=== PATIENT | male | born 1970 | race Caucasian/White ===

== ENCOUNTER 2018-02-04 15:09 | Emergency (ER) | payer OTHER, SELFPAY ==
[2018-02-04 15:10] VITALS: BP 130/71; PULSE 102; RESP 16; TEMP 36.8; O2SAT 98; BMI 31.4
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
[2018-02-04 17:38] VITALS: BP 117/78; PULSE 79; RESP 18; O2SAT 100
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
[2018-02-04 17:56] VITALS: BP 126/73; PULSE 78; RESP 16; O2SAT 100
== END 2018-02-04 17:57 | disposition home or self-care (01) ==
PROVIDERS: Emergency Provider Emergency Medicine; Family Provider Family Medicine; PCP Family Medicine
DX: S46.912A Strain of unspecified muscle, fascia and tendon at shoulder and upper arm level, left arm, initial encounter (principal); S16.1XXA Strain of muscle, fascia and tendon at neck level, initial encounter; V43.52XA Car driver injured in collision with other type car in traffic accident, initial encounter; Y93.9 Activity, unspecified; Y92.410 Unspecified street and highway as the place of occurrence of the external cause; Y99.9 Unspecified external cause status
CPT/HCPCS: 71101; 72125; 73030; 74177; 99284; Q9967; A4216

== ENCOUNTER → 2020-10-18 15:15 | Outpatient (CLI) | payer OTHER, SELFPAY ==
--- NOTE | 2020-10-18 15:19 | RAD_ITS ---
HISTORY: WORSENING COUGH/COVID 19 EXAMINATION/TECHNIQUE: XR Chest 2 Views: 2 views COMPARISON: 02/04/18 FINDINGS: LINES/DEVICES: None. LUNGS: No pulmonary consolidation, mass, or edema. No pleural effusion or pneumothorax. MEDIASTINUM AND CARDIOVASCULAR STRUCTURES: Cardiac silhouette not enlarged. Central airways and mediastinal contour are unremarkable. BONES AND SOFT TISSUES: No acute bony abnormalities. RAD/Chest PA and Lateral IMPRESSION: No radiographic evidence of acute cardiopulmonary disease. at 1634 Reported and signed by: Jose Francisco Acuña MD Electronically Signed: Jose Francisco Acuña MD at 16:33 EDT Tel , Service support ,
== END ==
PROVIDERS: PCP Family Medicine; Referring Provider Family Medicine; Visit Provider Family Medicine
DX: U07.1 COVID-19 (principal)
CPT/HCPCS: 71046

== ENCOUNTER → 2020-11-09 | Outpatient (CLI) | payer OTHER, SELFPAY | END | disposition home or self-care (01) | PROVIDERS: PCP Family Medicine; Referring Provider Family Medicine; Visit Provider Family Medicine | DX: R30.0 Dysuria (principal) | CPT/HCPCS: 87077; 87086; 87088; 87186; 87491; 87591 ==

== ENCOUNTER → 2022-08-07 | Outpatient (CLI) | payer OTHER, SELFPAY ==
[2022-08-07 15:20] LABS: AST(SGOT) 24 U/L (15-37); Alanine Aminotransfer ALT/SGPT 53 U/L (16-61); Albumin, Serum 3.4 g/dL (3.2-5.0); Alkaline Phosphatase 113 U/L (45-117); Anion Gap 7 (5-15); BUN 8 mg/dL (7-18); BUN/Creat Ratio 9.6 RATIO (10-20); Calcium,Total 8.1 mg/dL (8.5-10.1); Chloride 107 mmol/L (98-107); Creatinine, Serum 0.83 mg/dL (0.70-1.30); EST Glomerular Filtration Rate 104 mL/min (>60); Est Glom Filt Rate - Afr Amer 126 mL/min (>60); Globulin 3.4 g/dL (2.2-4.2); Glucose 92 mg/dL (74-106); Potassium 4.3 mmol/L (3.5-5.1); Protein, Total 6.8 g/dL (6.4-8.2); Sodium Level 138 mmol/L (136-145)
== END | disposition home or self-care (01) ==
LOC: BFHLAB 13:42
PROVIDERS: PCP Family Medicine; Visit Provider Family Medicine
DX: Z51.81 Encounter for therapeutic drug level monitoring (principal)
CPT/HCPCS: 36415; 80053

== ENCOUNTER 2023-04-28 06:58 | Day surgery (SDC) | payer OTHER, SELFPAY ==
[2023-04-28] VITALS (9 sets, daily range): BP systolic 96–127; BP diastolic 58–79; PULSE 59–76; RESP 14–18; TEMP 36.1–36.5; O2SAT 95–100; BMI 25.7
[2023-04-28] MEDS: Lactated Ringers 1,000 ML 15 ML IV (07:17)
--- NOTE | 2023-04-28 08:30 | COLBX_PTH ---
PATIENT: GENE PICKERING LOC: EN U#:[id number] AGE/SX: 52/M ROOM: RE04/28/[address]: Dr. Pablo Kenyon MD : 1970 BED: DIS: 04/28/2023 SPEC #: [id number] RECD: 04/28/23 11:16 STATUS: RICH CHARLIE #: [id number] BELINDA: 04/28/23 08:[address]: Pablo Kenyon DEPT: SURGICAL PATHOLOGY RECD BY: Malena Coats ENTERED: 04/28/23 11:16 SP TYPE: COLON BX OTHR DR: Dr. Saturnino Hayes DO Tissues: A - Gastric mucous membrane B - Esophageal mucous membrane C - Stomach, NOS Procedures: Special Stain Group II Surgery Specimen Level IV Alcian Blue/PAS (control) HEADER OPERATION: Colonoscopy, EGD with PH probe PRE-OP DIAGNOSIS: GERD TISSUE SUBMITTED: A - Gastric antrum for H. pylori and path, B - Gastroesophageal junction biopsy, C - Body of stomach biopsy MICROSCOPIC DIAGNOSIS A. Gastric antrum, biopsy: Chronic gastritis. See comment. B. Gastroesophageal junction, biopsy: Ulceration with associated acute and chronic inflammation and granulation. 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 No evidence of dysplasia. See comment. C. Body of stomach, biopsy: Chronic gastritis. AM:melinda 04/29/2023 COMMENT A. The results of immunohistochemistry for Helicobacter pylori will be reported separately ([id number]). B. Alcian blue/PAS stain with matched control supports the above diagnosis. Immunohistochemistry ([id number]) for P53 and Ki-67 will be performed and results will be reported separately. MICROSCOPIC DESCRIPTION Slides are reviewed. GROSS DESCRIPTION A - Received in fixative is one container labeled with the patient's name and designated gastric antrum. The specimen consists of one irregular fragment of light ariza soft tissue that measures 0.6 x 0.6 x 0.1 cm. The specimen is totally submitted in one cassette. B - Received in fixative is one container labeled with the patient's name and designated GE junction. The specimen consists of multiple irregular fragments of light ariza soft tissue that in aggregate measure 1.0 x 0.5 x 0.1 cm. The specimen is totally submitted in one cassette. C - Received in fixative is one container labeled with the patient's name and designated body of stomach. The specimen consists of one irregular fragment of light ariza soft tissue that measures 0.3 x 0.2 x 0.1 cm. The specimen is totally submitted in one cassette. / AM:melinda 04/28/2023 TC:3 CPT: 67468 x3, 50071
--- NOTE | 2023-04-28 08:30 | IMM_PTH ---
PATIENT: GENE PICKERING LOC: EN U#:[id number] AGE/SX: 52/M ROOM: RE04/28/[address]: Dr. Pablo Kenyon MD : 1970 BED: DIS: 04/28/2023 SPEC #: [id number] RECD: 04/28/23 15:43 STATUS: RICH REQ #: [id number] BELINDA: 04/28/23 08:[address]: Pablo Kenyon DEPT: IMMUNOHISTOCHEMISTRY RECD BY: Beatriz Granda ENTERED: 04/28/23 15:44 SP TYPE: IMMUNO OTHR DR: Dr. Saturnino Hayes DO Tissues: A - Stomach, NOS B - Gastric mucous membrane Procedures: H Pylori (initial) P53 (initial) KI-67 (add) Vimentin (add) Pankeratin (add) CD68 (ADD) MOC-31 (add) PHYSIC[facility] INSTIT[facility] [address] [address] SPECIMEN INFORMATION: Tissue Source: A - Gastric antrum, B - Gastroesophageal junction Clinical Info: GERD Specimen Number: [id number] A & B CPT code: 36975 x2, 38131 x5 METHODOLOGY: Deparaffinized sections of prefer/formalin-fixed tissue or PAP/DQ stained slides are incubated with monoclonal/polyclonal antibodies/oligonucleotide probes. Localization is made via biotin free immunoperoxidase method. Appropriate controls are performed and reacted as expected. Results on target cell population are indicated in the following table: RESULTS: ANTIBODY / CLONE RESULT Block A H Pylori (polyclonal) negative Block B P53 (DO-7) positive, wild type Ki-67 (30-9) positive, low MOC-31 (4561) positive AE1-3 (AE1/AE3/PCK26) negative CD68 (KP-1) positive Vimentin (V9) positive These tests were developed and their performance characteristics determined by [facility]. They may not have been cleared or approved by the U.S. Food and Drug Administration. The FDA has determined that such clearance or approval is not necessary. The above immunohistochemical/dualISH markers are ordered and reviewed by the Pathologist. INTERPRETATION: A. Gastric antrum, biopsy: Negative for Helicobacter pylori organisms. B. Gastroesophageal junction, biopsy: No evidence of dysplasia. AM:melinda 04/30/2023
--- NOTE | 2023-04-28 09:11 | OP.COLON_ITS ---
Patient Name: Emiliano Walsh Procedure Date: 04/28/2023 8:20 AM Date of : 1970 Age: 52 Procedure: Colonoscopy Indications: Screening for colorectal malignant neoplasm Providers: Pablo Kenyon MD Medicines: See the Anesthesia note for documentation of the administered medications Patient Profile: Last Colonoscopy: none. The patient's first colonoscopy is today. Complications: No immediate complications. Estimated blood loss: None. Procedure: Pre-Anesthesia Assessment: - The heart rate, respiratory rate, oxygen saturations, blood pressure, adequacy of pulmonary ventilation, and response to care were monitored throughout the procedure. After I obtained informed consent, the scope was passed under direct vision. Throughout the procedure, the patient's blood pressure, pulse, and oxygen saturations were monitored continuously. The Colonoscope was introduced through the anus and advanced to the cecum, identified by the appendiceal orifice, IC valve and transillumination. The colonoscopy was technically difficult and complex due to poor bowel prep. Successful completion of the procedure was aided by changing the patient to a supine position, straightening and shortening the scope to obtain bowel loop reduction, applying abdominal pressure and lavage. The patient tolerated the procedure well. Scope In: 8:21:12 AM Scope Withdrawal Time 0 hours 13 minutes 31 seconds Scope Out: 9:02:13 AM Total Procedure Duration Time 0 hours 41 minutes 1 second Findings: The perianal and digital rectal examinations were normal. The entire examined colon appeared normal on direct and retroflexion views. Impression: - The entire examined colon is normal on direct and retroflexion views. - No specimens collected. Recommendation: - Discharge patient to home (via wheelchair). - Resume previous diet today. - Continue present medications. - Await pathology results. - Repeat colonoscopy in 5 years for screening purposes. - Telephone my office for study results in 1 week. Procedure Code(s): --- Professional --- G0121, Colorectal cancer screening; colonoscopy on individual not meeting criteria for high risk Diagnosis Code(s): --- Professional --- Z12.11, Encounter for screening for malignant neoplasm of colon CPT copyright 2021 [employer]. All rights reserved. The codes documented in this report are preliminary and upon chemical plant operator supervisor review may be revised to meet current compliance requirements. Pablo Kenyon MD 04/28/2023 9:10:35 AM This report has been signed electronically. Number of Addenda: 0 Note Initiated On: 04/28/2023 8:20 AM
--- NOTE | 2023-04-28 09:11 | OP.CCLET_ITS ---
04/28/2023 Saturnino Hayes [address] [place] [address] Re : Colonoscopy procedure for Emiliano Walsh Dear Dr. Hayes This procedure was performed on Friday, April 28, 2023. My impressions and recommendations are as follows: Impressions : - The entire examined colon is normal on direct and retroflexion views. - No specimens collected. Recommendations : - Discharge patient to home (via wheelchair). - Resume previous diet today. - Continue present medications. - Await pathology results. - Repeat colonoscopy in 5 years for screening purposes. - Telephone my office for study results in 1 week. My findings are described in the full procedure note, which is enclosed. If I can be of further assistance, please feel free to contact me at Doctor phone number(s): , Work: . Sincerely, Pablo Kenyon MD 04/28/2023 9:10:35 AM This report has been signed electronically.
--- NOTE | 2023-04-28 09:20 | OP.EGD_ITS ---
Patient Name: Emiliano Walsh Procedure Date: 04/28/2023 8:54 AM Date of : 1970 Age: 52 Procedure: Upper GI endoscopy Indications: Esophageal reflux Providers: Pablo Kenyon MD Medicines: See the Anesthesia note for documentation of the administered medications Patient Profile: Last Colonoscopy: none. The patient's first colonoscopy is today. Patient has symptoms of chronic heartburn. Complications: No immediate complications. Estimated blood loss: Minimal. Procedure: Pre-Anesthesia Assessment: - The heart rate, respiratory rate, oxygen saturations, blood pressure, adequacy of pulmonary ventilation, and response to care were monitored throughout the procedure. After obtaining informed consent, the endoscope was passed under direct vision. Throughout the procedure, the patient's blood pressure, pulse, and oxygen saturations were monitored continuously. The Colonoscope was introduced through the mouth, and advanced to the second part of duodenum. The upper GI endoscopy was accomplished without difficulty. The patient tolerated the procedure well. Scope In: 7:51:02 AM Scope Out: 8:18:20 AM Total Procedure Duration Time 0 hours 27 minutes 18 seconds Findings: No gross lesions were noted in the duodenal bulb, in the first portion of the duodenum and in the second portion of the duodenum. No biopsies or other specimens were collected for this exam. Diffuse mildly erythematous mucosa without bleeding was found in the gastric body and in the gastric antrum. Biopsies were taken with a cold forceps for histology. Estimated blood loss was minimal. Localized mild inflammation characterized by friability and mucus was found in the gastric body. Biopsies were taken with a cold forceps for histology. The Z-line was irregular and was found 34 cm from the incisors. Biopsies were taken with a cold forceps for histology. Estimated blood loss was minimal. The gastroesophageal flap valve was visualized endoscopically and classified as Hill Grade IV (no fold, wide open lumen, hiatal hernia present). No biopsies or other specimens were collected for this exam. Esophagogastric landmarks were identified: the Z-line was found at 34 cm and the site of the diaphragmatic hiatus was found at 39 cm from the incisors. The exam was otherwise without abnormality. A large hiatal hernia was present. The GUTIÉRREZ capsule with delivery system was introduced through the mouth and advanced into the esophagus, such that the GUTIÉRREZ pH capsule was positioned 28 cm from the incisors, which was 6 cm proximal to the GE junction. The GUTIÉRREZ pH capsule was then deployed and attached to the esophageal mucosa. The delivery system was then withdrawn. Endoscopy was utilized for probe placement and diagnostic evaluation. Impression: - No gross lesions in the duodenal bulb, in the first portion of the duodenum and in the second portion of the duodenum. No specimens collected. - Erythematous mucosa in the gastric body and antrum. Biopsied. - Chronic gastritis. Biopsied. - Z-line irregular, 34 cm from the incisors. Biopsied. - Gastroesophageal flap valve classified as Hill Grade IV (no fold, wide open lumen, hiatal hernia present). No specimens collected. - Esophagogastric landmarks identified. - The examination was otherwise normal. - Large hiatal hernia. - The GUTIÉRREZ pH capsule was deployed. Recommendation: - Discharge patient to home (via wheelchair). - Resume previous diet today. - Telephone my office for study results in 1 week. - Continue present medications. Procedure Code(s): --- Professional --- 44918, Esophagogastroduodenoscopy, flexible, transoral; with biopsy, single or multiple Diagnosis Code(s): --- Professional --- K31.89, Other diseases of stomach and duodenum K29.50, Unspecified chronic gastritis without bleeding K22.89, Other specified disease of esophagus K44.9, Diaphragmatic hernia without obstruction or gangrene K21.9, Gastro-esophageal reflux disease without esophagitis CPT copyright 2021 [employer]. All rights reserved. The codes documented in this report are preliminary and upon religious education teacher review may be revised to meet current compliance requirements. Pablo Kenyon MD 04/28/2023 9:19:44 AM This report has been signed electronically. Number of Addenda: 0 Note Initiated On: 04/28/2023 8:54 AM
--- NOTE | 2023-04-28 09:20 | OP.CCLET_ITS ---
04/28/2023 Saturnino Hayes [address] [place] [address] Re : Upper GI endoscopy procedure for Emiliano Walsh Dear Dr. Hayes This procedure was performed on Friday, April 28, 2023. My impressions and recommendations are as follows: Impressions : - No gross lesions in the duodenal bulb, in the first portion of the duodenum and in the second portion of the duodenum. No specimens collected. - Erythematous mucosa in the gastric body and antrum. Biopsied. - Chronic gastritis. Biopsied. - Z-line irregular, 34 cm from the incisors. Biopsied. - Gastroesophageal flap valve classified as Hill Grade IV (no fold, wide open lumen, hiatal hernia present). No specimens collected. - Esophagogastric landmarks identified. - The examination was otherwise normal. - Large hiatal hernia. - The GUTIÉRREZ pH capsule was deployed. Recommendations : - Discharge patient to home (via wheelchair). - Resume previous diet today. - Telephone my office for study results in 1 week. - Continue present medications. My findings are described in the full procedure note, which is enclosed. If I can be of further assistance, please feel free to contact me at Doctor phone number(s): , Work: . Sincerely, Pablo Kenyon MD 04/28/2023 9:19:44 AM This report has been signed electronically.
--- NOTE | 2023-04-30 10:30 | HP.PCM_ITS ---
History and Physical Date of Admission: 04/28/23 Date of Service: 03/10/23 MR#: [id number] Acct: [id number] Name: GENE PICKERING Rep #: [id number] : 1970 Provider: Dr. Pablo Kenyon MD Age/Sex: 52/M Location: [facility] Status: Signed Intake Vital Signs 03/10/2314:41 Height 5 ft 4 in Weight: 156 lb BMI 26.7 BP 109/74 Blood Pressure Location Rt brachial Position Sitting Respiration 18 Pulse 107 H Pulse Source Monitor Temp 97.9 F Temp Source Temporal Pulse Oximetry (%) 97 Oxygen Delivery Method room air Intake Visit Reasons: SCREENING SCOPE / GERD Chief Complaint: Screening C-scope/GERD Scrummaster Required: No Is patient in pain?: No Allergies Penicillins [PCN] Allergy (Verified 03/10/23 14:47) Unknown Medications omeprazole 20 mg capsule,delayed release 20 mg PO DAILY 03/10/23 [History Confirmed 03/10/23] PFSH Medical History (Updated 03/10/23 @ 17:[address] Pablo Kenyon MD) GERD (gastroesophageal reflux disease) Surgical History (Updated 03/10/23 @ 14:42 by Shira Manzano) History of tonsillectomy Family History (Updated 03/10/23 @ 14:43 by Shira Manzano) Father HypertensionMother Hypertension Social History (Updated 03/10/23 @ 14:43 by Shira Manzano) Smoking Status: Never smoker alcohol intake: current alcohol intake frequency: a few times a month substance use type: does not use HPI HPI HPI: Patient is a 52-year-old male who presents for need to schedule screening colonoscopy secondary to no prior exam and present age. They are referred for surgical consultation from [facility]. Patient states that he recently switched primary care providers and was informed that this health maintenance items remained to be done. Patient has not had prior colonoscopy. Patient has no personal history of colon cancer, inflammatory bowel disease, or diverticulitis. They describe their bowel habits as normal. They have approximately 1-2 per day and spend roughly 10-15 minutes on the toilet without significant straining. They have not noticed recent bleeding or dark stools. Patient has a family history of diverticulitis in their mother. The patient's weight is stable. The patient is not prescribed anticoagulants/blood thinners. Relevant prior abdominal surgical history includes: None Patient does have a significant history of reflux. He states that he has had the symptoms for the past 5 to 6 years and has been on medication for that time. He takes Prilosec 20 mg daily and sometimes twice daily. He notes that when he is about to try one of his trigger foods (which he details are spicy foods or pineapple) then he will take a second capsule. He states that he frequently experiences the symptoms at approximately midnight after going to bed between 8 and 9 PM. He reports taking dinner between 5 and 6 PM. He confesses that he is not currently sleeping with his head propped up because he previously has not found it to be very effective in minimizing his symptoms. He denies any adverse effect in response to caffeine. Beyond his use of Prilosec he notes that taking warm baking soda can kill it instantly (referencing dissipation of his symptoms). ROS General General: No weight change, appetite, fatigue, colon cancer, breast cancer or weakness HEENT HEENT: No difficulty swallowing, eye injury, eye surgery, swollen glands or hoarseness Endo Endocrine: No thyroid disease, diabetes mellitus, thyroid cancer, Hair loss, heat intolerance or cold intolerance Skin Skin: No rash or changing moles Breast Breast: No left breast lump, right breast lump, nipple discharge, breast pain, abnormal mammogram, abnormal US or breast enlargement Musc Musculoskeletal: No back problems, arthritis, rheumatoid arthritis, gout or joint pain Cardio Cardiovascular: No murmur, pacemaker, heart disease, atrial fibrillation, high blood pressure, heart attack, heart stent, palpitations, shortness of breat with exertion or chest pain Psych Psychiatric: No depression, anxiety or hearing voices Resp Respiratory: No shortness of breath, No sleep apnea, No cough, No COPD, No asthma, No emphysema and No wheezing Gastro Gastrointestinal: No abdominal pain, No nausea or vomiting, No diarrhea, No constipation, No blood in stool, Yes acid reflux, No hemorrhoids, No ulcers, No gallbladder problem and No black,tarry stools Venkata Hematologic: No blood thinners, No blood disorders, No bleeding, No anemia and No blood clots Neuro Neurologic: No system reviewed and no additional complaints, except as documented, No as per HPI, No abnormal gait, No abnormal hearing, No abnormal movements, No abnormal speech, No behavioral changes, No burning sensations, No confusion, No convulsions, No disequilibrium, No dizziness, No localized weakness, No frequent falls, No headache(s), No lack of coordination, No loss of vision, No memory loss, No numbness, No other visual disturbances, No radicular pain, No restless legs, No sensory deficit, No syncope, No tingling, No tremor(s), No weakness and No other Exam Const General: cooperative and comfortable Orientation: alert and awake Resp Effort & Inspection: normal respiratory effort GI Other: Hirsute, no scars, nondistended, soft, nontender x4 quadrants Assessment and Plan Assessment and Plan (1) Screening for colon cancer: Status: Acute Comment: Patient is 52-year-old male with no prior history of colonoscopy. He describes rather normal bowel function and does not appear to be at any increased risk for colon cancer based on the history provided. Given his interest and simply updating this maintenance item, I believe this is a reasonable request and have discussed both bowel prep as well as procedural expectations. Plan: Plan will be to complete colonoscopy on first mutually agreeable date under local MAC. Pre-procedure prep discussed and paper instructions provided. Patient is also made aware that he will need to have a cdl b driver with [him/her] the day of the procedure. (2) GERD (gastroesophageal reflux disease): Status: Acute Comment: Patient describes refractory symptoms despite faithful use of PPI on a daily basis. He has not had any prior EGD evaluation or swallow studies. I have discussed with him some lifestyle modifications that may be of benefit, but do believe that he warrants endoscopic evaluation based on the frequency of his symptoms and the fact that they are continuing to occur despite regular use of his medication. I would also like to plan for a pH probe placement at the time of this endoscopy as I would like to calculate his DeMeester score to be sure that his symptoms are correlating with a drop in pH across his esophagus. This was described with hand drawings of the relevant anatomy and placement of the probe. Patient was accepting of this recommendation and we will plan to add this to the screening colonoscopy discussed above. Plan: EGD with pH probe placement (and testing for H. pylori) along with screening colonoscopy proposed above I have examined the patient and the H&P has been reviewed. There are no clinical changes since date of exam. Patient reports that he has abided by his bowel prep instructions and actually shares that he had minimal output with his initia l consumption of the prep so he reported to the pharmacy where he was readministered the prep and took that as well. He reports that his output is now clear. He shares that he overall has abstained from taking his PPI medication but did decide to take it 3 days ago when his symptoms flared particularly bad. He denies any questions regarding today's plan procedures so we will proceed to the endoscopy suite for diagnostic EGD with pH probe placement as well as screening colonoscopy.
== END 2023-04-28 10:41 | disposition home or self-care (01) ==
LOC: EN 06:59 → AC 07:00
PROVIDERS: PCP Family Medicine; Referring Provider Family Medicine; Visit Provider Surgery
PROC: 0DJD8ZZ Inspection of Lower Intestinal Tract, Via Natural or Artificial Opening Endoscopic (ICD-10-PCS; CPT 45378; principal; 2023-04-28 08:25)
DX: Z12.11 Encounter for screening for malignant neoplasm of colon (principal); K44.9 Diaphragmatic hernia without obstruction or gangrene; K29.50 Unspecified chronic gastritis without bleeding; K21.9 Gastro-esophageal reflux disease without esophagitis; K25.7 Chronic gastric ulcer without hemorrhage or perforation; K22.70 Barrett's esophagus without dysplasia; Z79.899 Other long term (current) drug therapy
CPT/HCPCS: 45378; 43239; 81002; 88305; 88313; 88341; 88342; J7120; J2405

== ENCOUNTER → 2023-06-23 | Outpatient (CLI) | payer OTHER, SELFPAY ==
--- NOTE | 2023-06-23 07:46 | RAD_ITS ---
STUDY: AIR CONTRAST ESOPHAGRAM AND UPPER GI SERIES REASON FOR EXAM: Male, 53 years old. K21.9 - Gastro-esophageal reflux disease without esophagitis FLUOROSCOPY TIME (if supplied): (1 minute and 22 seconds) minutes/seconds. 53.17 mGy. 17 images were submitted. TECHNIQUE: SINGLE CONTRAST AND AIR CONTRAST FLUOROSCOPIC IMAGES. COMPARISON: None. FINDINGS: The cervical esophagus demonstrates normal motility without aspiration. There is no stricture or extrinsic mass effect. No intraluminal polypoid mass is identified. The thoracic esophagus distends well without stricture or mucosal fold thickening. No mucosal ulcerations are identified. There is no extrinsic mass effect. There are no diverticula. No hiatal hernia or gastroesophageal reflux was identified. The patient ingested a 12 mm tablet of barium without any difficulty. The stomach distends well without mucosal fold thickening or mucosal ulceration. There is no intraluminal mass. The duodenal bulb is freely distensible without deformity or ulceration. The duodenal sweep is normal in position and caliber. RAD/Upper GI w/BA Swallow IMPRESSION: Normal air-contrast esophagram and upper GI series. Electronically Signed: Sherif Eddy MD at 9:06 [facility] ,
== END | disposition home or self-care (01) ==
LOC: RAD 07:46
PROVIDERS: PCP Family Medicine; Referring Provider Surgery; Visit Provider Surgery
DX: K21.9 Gastro-esophageal reflux disease without esophagitis (principal)
CPT/HCPCS: 74246